=== PATIENT | female | born 1940 | race Caucasian/White ===

== ENCOUNTER → 2017-10-07 | Outpatient (CLI) | payer MEDICARE ==
--- NOTE | 2017-10-07 14:43 | XR ---
EXAMINATION TYPE: XR foot complete LT DATE OF EXAM: 10/07/2017 COMPARISON: None HISTORY: Fall downstairs pain across second fourth metatarsals TECHNIQUE: Three-view left foot FINDINGS: Structures appear slightly osteopenic. No acute fractures are evident. Joint spaces are pre served. Alignment is normal. Plantar and Achilles tendon calcaneal heel spurs are present IMPRESSION: 1. Plantar and Achilles tendon calcaneal heel spurs. 2. No acute or subacute fractures evident
== END | disposition home or self-care (01) ==
LOC: RADXRYALE 13:53
PROVIDERS: ATTEND Internal Medicine
DX: M77.32 Calcaneal spur, left foot (principal)